=== PATIENT | male | born 1975 | race Caucasian/White ===

== ENCOUNTER 2024-04-19 17:59 | Emergency (ER) | payer BC, SELFPAY ==
[2024-04-19 18:07] VITALS: BP 151/85; PULSE 75; RESP 18; TEMP 36.3; O2SAT 98; BMI 26.4
--- NOTE | 2024-04-19 18:30 | CRLHL7_ITS ---
For Patients: As a result of the Century Cures Act, medical imaging exams and procedure reports are released immediately into your electronic medical record. You may view this report before your referring provider. If you have questions, please contact your health care provider. Indication: Abdominal pain, possible bowel obstruction. Technique: Abdomen 4 view. Comparison: None. Findings: Bowel: Nonobstructive bowel gas pattern. [id number] colonic stool burden. Other: No sign of free air. No sign of soft tissue mass. Calcified granulomata scattered throughout the lung bases. Osseous structures are unremarkable for age. Impression: No evidence of an acute intra-abdominal process. Mild to moderate colonic stool burden. No evidence for bowel obstruction. Dictated by Omega Cordero MD @ 04/19/2024 7:29:33 PM (Electronically Signed)
--- NOTE | 2024-04-19 18:31 | ED_ITS ---
HPI - Abdominal Pain General Chief Complaint: Abdominal Pain Stated Complaint: Bowel obstruction Time Seen by Provider: 04/19/24 18:01 History of Present Illness HPI narrative: This 48-year-old male comes in thinking that he has a bowel obstruction. He is passing gas and having a little bit of stool coming forward. He does not have any previous history of surgery to his abdomen. He states that he took a bowel cleanse a few weeks ago because he feels like things are blocked in his abdomen. He has been passing some stool and currently does not have any pain. He does not report any fevers. He has not had any vomiting or burping. Related Data Allergies Allergy/AdvReac Type Severity Reaction Status Date / Time No Known Drug Allergies Allergy Verified 04/19/24 18:07 Review of Systems Status of ROS Reports: 10 or more systems reviewed and unremarkable except as noted in History and below Narrative Constitutional: No fevers, no weight gain or loss. Eyes: No discharge. No vision changes. HENT: No congestion, no sore throat, no ear pain. Cardiovascular: No chest pain, no palpitations. Respiratory: No shortness of breath, no wheezes, no cough. Gastrointestinal: No vomiting, no diarrhea. Abdominal symptoms as described above. Genitourinary: No dysuria, no hematuria. Musculoskeletal: Normal range of motion. Skin: No rashes, no pruritis. Neurological: No dizziness, weakness, sensory change, speech change. Endo/Heme/Allergies: No bruising or bleeding. No polydipsia. Pysch: no suicidality, no anxiety, no insomnia. All other systems reviewed and are negative. [facility] Medical History (Updated 04/19/24 @ 19:31 by Victor M Mcfadden MD) Urticaria ?L50.9 - Urticaria, unspecified (ICD-10) Social History Smoking Status: Current every day smoker Exam Narrative: Exam Narrative: Constitutional: Well-developed, well-nourished, no acute distress. HEENT: Normocephalic, atraumatic. Neck: Normal range of motion. Nontender. Supple. Heart: Regular. No murmurs. Normal rate. Intact distal pulses. Lungs: Clear to auscultation. No chest discomfort. No wheezes, rhonchi, or rales. Abdomen: Normal bowel sounds. Nontender. No rebound tenderness. No high-pitched bowel sounds. Genitalia: Deferred. Back: No midline tenderness. Normal range of motion. Extremities: Normal range of motion. No injury. Skin: Intact. No rash. Warm. No erythema or pallor. Neurologic: No altered sensation. No weakness. Alert and oriented. Psychiatric: No suicidality. No anxiety or depression. No insomnia. Nursing notes and vitals signs are reviewed. Const: Vital Signs, click to edit/add: Vital Signs - 24 hr 04/19/24 18:07 Temperature 97.3 F L Pulse Rate [Right Pulse Oximeter] 75 Respiratory Rate 18 Blood Pressure [Ri ght Upper Arm] 151/85 H Pulse Oximetry 98 Oxygen Delivery Me thod Room Air Course Vital Signs Vital signs: Initial Vital Signs Temperature 97.3 F L 04/19/24 18:07 Temperature Source Temporal Artery Scan 04/19/24 18:07 Pulse Rate 75 04/19/24 18:07 Pulse Rhythm Regular 04/19/24 18:07 Pulse Strength 3+ Normal 04/19/24 18:07 Respiratory Rate 18 04/19/24 18:07 Blood Pressure 151/85 H 04/19/24 18:07 Blood Pressure Mean 107 H 04/19/24 18:07 Blood Pressure Position Sitting 04/19/24 18:07 Pulse Oximetry 98 04/19/24 18:07 Oxygen Delivery Method Room Air 04/19/24 18:07 Vital Signs Temperature 97.3 F L 04/19/24 18:07 Pulse Rate 75 04/19/24 18:07 Respiratory Rate 18 04/19/24 18:07 Blood Pressure 151/85 H 04/19/24 18:07 Pulse Oximetry 98 04/19/24 18:07 Oxygen Delivery Method Room Air 04/19/24 18:07 Temperature 97.3 F L 04/19/24 18:07 Pulse Rate 75 04/19/24 18:07 Respiratory Rate 18 04/19/24 18:07 Blood Pressure 151/85 H 04/19/24 18:07 Pulse Oximetry 98 04/19/24 18:07 Oxygen Delivery Method Room Air 04/19/24 18:07 MDM - Abdominal Pain MDM Narrative Medical decision making narrative: This patient comes in with concern about his bowels. He is not showing any signs or symptoms suspicious of obstruction. He has use some bowel cleanse treatments that are non prescription and actually non FDA approved that may in fact causing some of his symptoms. I did obtain an x-ray of his abdomen which by my review shows no sign of obstruction or acute abnormality. Radiology report is pending. The patient is 48 years old and has not had a colonoscopy. I recommended getting this done and he is in agreement and will arrange for a colonoscopy. I also described [id number] medicines to manage more regular bowel function. Discharge Plan Discharge Clinical Impression: Constipation Additional Instructions: Use [id number] medicines as needed and directed for managing bowel function. Recommended to use a fiber such as Metamucil, Citrucel, or Benefiber. Other treatments also can be used such as MiraLax, Dulcolax, senna, magnesium citrate, suppositories, and enemas. Is recommended to follow up for a colonoscopy. Call [phone] for appointment. Return if worsening. Follow Up/Referrals: Provider,Not a Local [Primary Care Provider] - Stand Alone Forms: Ads-Fi Info Instructions
[2024-04-19 19:42] VITALS: BP 135/100; PULSE 73; RESP 16
== END 2024-04-19 19:43 | disposition home or self-care (01) ==
LOC: ED 18:40
PROVIDERS: Emergency Provider Emergency Medicine Emergency Medical Services
DX: K59.00 Constipation, unspecified (principal)
CPT/HCPCS: 74019; 99283; 99284

== ENCOUNTER 2024-09-03 08:31 | Outpatient (CLI) | payer BC, SELFPAY | END 2024-09-03 08:32 | disposition home or self-care (01) | LOC: NFLDREF 09-06 10:20 | PROVIDERS: Visit Provider Physician Assistant | DX: R39.198 Other difficulties with micturition (principal); R82.90 Unspecified abnormal findings in urine | CPT/HCPCS: 87086 ==